=== PATIENT | male | born 1980 | race African-American/Black ===

== ENCOUNTER 2019-04-16 17:57 | Emergency (ER) | payer OTHER ==
[~2019-04-16] VITALS: Ht 167.6 cm; Wt 75.5 kg
[2019-04-16 18:25] LABS: BASO # 0.1 10^3/uL (0.0-0.2); BASO % 1.2 % (0.0-1.0); EOS # 0.4 10^3/uL (0.0-0.5); EOS % 7.3 % (0.0-3.0); HEMATOCRIT 47.9 % (42.0-52.0); HEMOGLOBIN 16.2 g/dl (13.5-17.5); LYMPH # 1.9 10^3/uL (1.5-5.0); LYMPH % 36.9 % (24.0-44.0); MEAN CORPUSCULAR HEMOGLOBIN 27.5 pg (27.0-33.0); MEAN CORPUSCULAR HGB CONC 33.8 g/dl (32.0-36.5); MEAN CORPUSCULAR VOLUME 81.3 fl (80.0-96.0); MONO # 0.4 10^3/uL (0.0-0.8); MONO % 8.1 % (0.0-5.0); NEUTROPHILS # 2.3 10^3/uL (1.5-8.5); NEUTROPHILS % 46.1 % (36.0-66.0); PLATELET COUNT, AUTOMATED 159 10^3/uL (150-450); RED BLOOD COUNT 5.89 10^6/uL (4.30-6.10); WHITE BLOOD COUNT 5.1 10^3/uL (4.0-10.0)
[2019-04-16] MEDS ORDERED: NITROGLYCERIN 0.4 MG SUBL TABLET SL PRN (18:45)
[2019-04-16 18:56] LABS: INR 1.01; PARTIAL THROMBOPLASTIN TIME 29.9 SECONDS (25.0-38.4)
--- NOTE | 2019-04-16 18:58 | REP ---
CHEST: Single view. There is no evidence of acute infiltrate. No pleural effusion is seen. The heart is normal in size. The mediastinal silhouette is unremarkable. The visualized osseous structures are intact. IMPRESSION: No acute pulmonary disease. Electronically Signed by Agusto Silverman MD 04/18/2019 04:35 P
[2019-04-16 19:05] LABS: ALBUMIN 4.2 GM/DL (3.2-5.2); ALT/SGPT 30 U/L (12-78); BILIRUBIN,DIRECT < 0.1 MG/DL (0.0-0.2); BILIRUBIN,TOTAL 0.3 MG/DL (0.2-1.0); BLOOD UREA NITROGEN 14 MG/DL (7-18); CALCIUM LEVEL 9.4 MG/DL (8.5-10.1); CARBON DIOXIDE LEVEL 29 MEQ/L (21-32); CHLORIDE LEVEL 106 MEQ/L (98-107); CK-MB VALUE MASS 1.2 NG/ML (<3.6); CPK CREATINE PHOSPHOKINASE 273 U/L (39-308); CREATININE FOR GFR 1.23 MG/DL (0.70-1.30); GLOMERULAR FILTRATION RATE > 60.0 (>60); GLUCOSE, FASTING 77 MG/DL (70-100); LIPASE 167 U/L (73-393); MB/CK RELATIVE INDEX 0.44 (< OR =4); POTASSIUM SERUM 4.6 MEQ/L (3.5-5.1); SODIUM LEVEL 141 MEQ/L (136-145); TOTAL PROTEIN 7.2 GM/DL (6.4-8.2); TROPONIN I < 0.02 NG/ML (< 0.10)
--- NOTE | 2019-04-16 19:26 | ECGEPIP ---
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
[2019-04-16 19:36] LABS: D-DIMER QUANT < 270 ng/ml (<500)
[2019-04-17 00:34] LABS: CK-MB VALUE MASS < 1.0 NG/ML (<3.6); CPK CREATINE PHOSPHOKINASE 194 U/L (39-308); MB/CK RELATIVE INDEX 0.52 (< OR =4); TROPONIN I < 0.02 NG/ML (< 0.10)
[2019-04-17 00:45] VITALS: BP 160/95
--- NOTE | 2019-04-18 21:21 | ECGEPIP ---
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
== END 2019-04-17 01:26 | disposition home or self-care (01) ==
LOC: EDBD 17:57 → M ED 17:57
DX: R07.9 Chest pain, unspecified (principal)
CPT/HCPCS: 36415; 71045; 80048; 80076; 82550; 82553; 83690; 84443; 84484; 85025; 85379; 85610; 85730; 93005; 93041; 94760; 99285; G0463

== ENCOUNTER 2019-04-21 03:34 | Emergency (ER) | payer OTHER ==
[~2019-04-21] VITALS: Ht 172.7 cm; Wt 73.6 kg
[2019-04-21] MEDS ORDERED: IBUP-1114 PO (03:41)
[2019-04-21] MEDS ORDERED: ZOFR4TAB16 PO (03:41)
[2019-04-21 03:53] LABS: BASO # 0.1 10^3/uL (0.0-0.2); BASO % 0.9 % (0.0-1.0); EOS # 0.3 10^3/uL (0.0-0.5); EOS % 4.9 % (0.0-3.0); HEMATOCRIT 47.6 % (42.0-52.0); HEMOGLOBIN 16.6 g/dl (13.5-17.5); LYMPH # 2.2 10^3/uL (1.5-5.0); LYMPH % 41.4 % (24.0-44.0); MEAN CORPUSCULAR HEMOGLOBIN 28.4 pg (27.0-33.0); MEAN CORPUSCULAR HGB CONC 34.9 g/dl (32.0-36.5); MEAN CORPUSCULAR VOLUME 81.5 fl (80.0-96.0); MONO # 0.4 10^3/uL (0.0-0.8); MONO % 7.7 % (0.0-5.0); NEUTROPHILS # 2.4 10^3/uL (1.5-8.5); NEUTROPHILS % 44.7 % (36.0-66.0); PLATELET COUNT, AUTOMATED 156 10^3/uL (150-450); RED BLOOD COUNT 5.84 10^6/uL (4.30-6.10); WHITE BLOOD COUNT 5.3 10^3/uL (4.0-10.0)
[2019-04-21 04:23] LABS: BLOOD UREA NITROGEN 12 MG/DL (7-18); CARBON DIOXIDE LEVEL 27 MEQ/L (21-32); CHLORIDE LEVEL 108 MEQ/L (98-107); CK-MB VALUE MASS < 1.0 NG/ML (<3.6); CPK CREATINE PHOSPHOKINASE 209 U/L (39-308); CREATININE FOR GFR 1.24 MG/DL (0.70-1.30); GLOMERULAR FILTRATION RATE > 60.0 (>60); GLUCOSE, FASTING 94 MG/DL (70-100); MB/CK RELATIVE INDEX 0.48 (< OR =4); POTASSIUM SERUM 4.2 MEQ/L (3.5-5.1); SODIUM LEVEL 142 MEQ/L (136-145); TROPONIN I < 0.02 NG/ML (< 0.10)
[2019-04-21] MEDS ORDERED: KETOROLAC 30 MG/ML VIAL (J1885) IV ONE (07:30)
[2019-04-21] MEDS ORDERED: ISOVUE-370 76% 100ML VIAL (Q9967) As Ordered ONE (07:32)
[2019-04-21 08:22] LABS: ERYTHROCYTE SEDIMENTATION RATE 1 mm/hr (0-15)
--- NOTE | 2019-04-21 08:27 | REPVR ---
PROCEDURE INFORMATION: Exam: CT Angiography Chest With Contrast Exam date and time: 04/21/2019 7:56 AM Clinical history: 38 years old, male; Chest wall pain; Additional info: Pleuritic cp TECHNIQUE: Imaging protocol: Computed tomographic angiography of the chest with intravenous contrast. 3D rendering: MIP reconstructed images were created and reviewed. Radiation optimization: All CT scans at this facility use at least one of these dose optimization techniques: automated exposure control; mA and/or kV adjustment per patient size (includes targeted exams where dose is matched to clinical indication); or iterative reconstruction. Contrast material: ISOVUE 370; Contrast volume: 75 ml; Contrast route: IV; COMPARISON: CR PORTABLE CHEST X-RAY 04/16/2019 6:22 PM FINDINGS: Pulmonary arteries: Normal. No pulmonary emboli. Aorta: Unremarkable. No aortic aneurysm. No aortic dissection. Lungs: Bilateral dependent atelectasis. Pleural space: Unremarkable. No pneumothorax. No pleural effusion. Heart: Unremarkable. No cardiomegaly. No pericardial effusion. Lymph nodes: Unremarkable. No enlarged lymph nodes. Bones/joints: Unremarkable. No acute fracture. Soft tissues: Unremarkable. IMPRESSION: No acute pulmonary embolic disease Electronically signed by: Praful Lau On 04/21/2019 08:27:37 AM
[2019-04-21 08:56] VITALS: BP 124/69
--- NOTE | 2019-04-21 13:32 | ECGEPIP ---
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
== END 2019-04-21 08:58 | disposition home or self-care (01) ==
LOC: M ED 03:34
DX: M94.0 Chondrocostal junction syndrome [Tietze] (principal)
CPT/HCPCS: 71275; 80048; 82550; 82553; 84484; 85025; 85652; 93005; 96374; 99284; J1885; Q9967

== ENCOUNTER → 2019-05-13 | Outpatient (CLI) | payer OTHER ==
[~2019-05-13] MED LIST: IBUP-1114 PO; ZOFR4TAB16 PO
--- NOTE | 2019-05-18 10:50 | SLEEPHOME ---
DATE OF PROCEDURE:05/13/2019 ORDERED BY: Dr. Wilson Diagnostic home sleep testing was performed due to concern for the obstructive sleep apnea syndrome in this patient with a history of snoring. For testing, a nocturnal T3 respiratory monitoring device was used. Continuous record was made of pulse, oxygen saturation, airflow, chest and abdominal strain and body position. 10 hours and 59 minutes of data were reviewed. There were 6 hours and 11 minutes marked as time in bed. During the interval marked time in bed, there were 103 respiratory events identified of 10 seconds in duration or greater for respiratory event index of 16.6. The events were frequently central, 86 of the 103 respiratory events were central and mixed apneas. Baseline pulse rate was 74 beats per minute, pulse rate ranged 51-108. Baseline saturation 96%. Saturations fell to 90%. The position monitor was displaced early in testing. Abnormal home sleep testing with repetitive respiratory events and oxygen desaturations to 90% with a respiratory event index of 16, 6 is consistent with the obstructive sleep apnea syndrome. Given the frequency of central events, complex apnea is a distinct possibility. RECOMMENDATIONS: The patient should be encouraged to undergo formal sleep evaluation.
== END ==
LOC: M SLEEP HO 09:46
PROVIDERS: ATTEND Internal Medicine Cardiovascular Disease
DX: R06.83 Snoring (principal)

== ENCOUNTER 2020-01-04 02:40 | Emergency (ER) | payer OTHER ==
[~2020-01-04] VITALS: Ht 172.7 cm; Wt 75.5 kg
[2020-01-04] MEDS ORDERED: SERT-141 PO (02:47)
[2020-01-04] MEDS ORDERED: TOPI200T7 PO (02:47)
[2020-01-04 03:27] LABS: BASO % 0.8 % (0.0-1.0); EOS # 0.2 10^3/uL (0.0-0.5); EOS % 2.9 % (0.0-3.0); HEMATOCRIT 47.9 % (42.0-52.0); HEMOGLOBIN 16.1 g/dl (13.5-17.5); LYMPH # 2.1 10^3/uL (1.5-5.0); LYMPH % 40.5 % (24.0-44.0); MEAN CORPUSCULAR HEMOGLOBIN 27.2 pg (27.0-33.0); MEAN CORPUSCULAR HGB CONC 33.6 g/dl (32.0-36.5); MONO # 0.4 10^3/uL (0.0-0.8); NEUTROPHILS # 2.5 10^3/uL (1.5-8.5); NEUTROPHILS % 47.6 % (36.0-66.0); PLATELET COUNT, AUTOMATED 180 10^3/uL (150-450); RED BLOOD COUNT 5.91 10^6/uL (4.30-6.10); WHITE BLOOD COUNT 5.1 10^3/uL (4.0-10.0)
--- NOTE | 2020-01-04 03:39 | REPVR ---
PROCEDURE INFORMATION: Exam: CT Head Without Contrast Exam date and time: 01/04/20 (3:09am) Age: 39 years old Clinical indication: Migraine headache TECHNIQUE: Imaging protocol: Computed tomography of the head without contrast. Radiation optimization: All CT scans at this facility use at least one of these dose optimization techniques: automated exposure control; mA and/or kV adjustment per patient size (includes targeted exams where dose is matched to clinical indication); or iterative reconstruction. COMPARISON: No relevant prior studies available FINDINGS: Brain: Unremarkable. No acute hemorrhage. Unremarkable white matter. No mass effect. Ventricles: Normal. No ventriculomegaly. Bones/joints: Unremarkable. No acute fracture. Sinuses: Visualized sinuses are unremarkable. No air-fluid levels. Mastoid air cells: Visualized mastoid air cells are well aerated. Soft tissues: Unremarkable. IMPRESSION: No acute intracranial pathology is appreciated. Electronically signed by: Stephanie Moses On 01/04/2020 03:39:06 AM
[2020-01-04] MEDS ORDERED: KETOROLAC 60MG 2ML VIAL IM ONE (03:45)
[2020-01-04 04:05] LABS: BLOOD UREA NITROGEN 9 MG/DL (7-18); CALCIUM LEVEL 8.7 MG/DL (8.5-10.1); CARBON DIOXIDE LEVEL 28 MEQ/L (21-32); CHLORIDE LEVEL 107 MEQ/L (98-107); CREATININE FOR GFR 1.15 MG/DL (0.70-1.30); GLOMERULAR FILTRATION RATE > 60.0 (>60); GLUCOSE, FASTING 94 MG/DL (70-100); POTASSIUM SERUM 4.3 MEQ/L (3.5-5.1); SODIUM LEVEL 140 MEQ/L (136-145)
[2020-01-04 04:24] VITALS: BP 136/89
== END 2020-01-04 04:27 | disposition home or self-care (01) ==
LOC: M ED 02:40
DX: G43.909 Migraine, unspecified, not intractable, without status migrainosus (principal); F41.9 Anxiety disorder, unspecified; Z79.899 Other long term (current) drug therapy
CPT/HCPCS: 70450; 80048; 85025; 96372; 99283; J1885

== ENCOUNTER 2020-01-12 03:06 | Emergency (ER) | payer OTHER ==
[~2020-01-12] VITALS: Ht 172.7 cm; Wt 76.4 kg
[2020-01-12 03:06] VITALS: BP 131/93
[~2020-01-12 03:06] MED LIST changes: +SERT-141 PO; +TOPI200T7 PO
[2020-01-12] MEDS ORDERED: ACET325C5 PO (03:38)
[2020-01-12] MEDS ORDERED: AMIT-255 PO (03:38)
[2020-01-12] MEDS ORDERED: CYCL-707 PO (03:38)
[2020-01-12] MEDS ORDERED: TOPI100T9 PO (03:38)
[2020-01-12] MEDS ORDERED: SUMA50TA2 PO (03:38)
[2020-01-12] MEDS ORDERED: KETOROLAC 60MG 2ML VIAL IM ONE (06:00)
== END 2020-01-12 07:15 | disposition home or self-care (01) ==
LOC: M ED 03:06
DX: G43.909 Migraine, unspecified, not intractable, without status migrainosus (principal)
CPT/HCPCS: 96372; 99282; J1885

== ENCOUNTER 2020-02-03 04:35 | Emergency (ER) | payer OTHER ==
[~2020-02-03] VITALS: Ht 172.7 cm; Wt 75.0 kg
[~2020-02-03 04:35] MED LIST changes: +ACET325C5 PO; +AMIT-255 PO; +CYCL-707 PO; +SUMA50TA2 PO; +TOPI100T9 PO
[2020-02-03 04:36] VITALS: BP 136/84
[2020-02-03] MEDS ORDERED: METOCLOPRAMIDE INJ 10MG/2ML VIAL (J2765 PER 1) IV ONE (05:00)
[2020-02-03] MEDS ORDERED: KETOROLAC 30 MG/ML 1ML VIAL IV ONE (05:00)
[2020-02-03] MEDS ORDERED: NS 1,000 ML IV ONE (05:00)
== END 2020-02-03 05:41 | disposition home or self-care (01) ==
LOC: M ED 04:35
DX: G43.909 Migraine, unspecified, not intractable, without status migrainosus (principal); Z79.899 Other long term (current) drug therapy
CPT/HCPCS: 96361; 96374; 96375; 99283; J1885; J2765

== ENCOUNTER 2020-05-07 10:52 | Inpatient (IN) | payer OTHER ==
[~2020-05-07] VITALS: Ht 172.7 cm; Wt 74.1 kg
[2020-05-07] MEDS ORDERED: CYCL5TAB PO (11:11)
[2020-05-07] MEDS ORDERED: MELO15TA28 PO (11:11)
[2020-05-07] MEDS ORDERED: RIZA10TA58 PO (11:11)
[2020-05-07] MEDS ORDERED: SUMA25TA3 PO (11:11)
[2020-05-07] MEDS ORDERED: CLAR10CA3 PO (11:11)
[2020-05-07] MEDS ORDERED: LOSA50TA88 PO (11:11)
[2020-05-07] MEDS ORDERED: TOPA100T12 PO (11:11)
[2020-05-07] MEDS ORDERED: CYMB60CA3 PO (11:11)
[2020-05-07] MEDS ORDERED: TIZA4CAP PO (11:11)
[2020-05-07] MEDS ORDERED: GABA-845 PO (11:11)
[2020-05-07 11:34] LABS: HEMATOCRIT 48.6 % (42.0-52.0); HEMOGLOBIN 16.4 g/dl (13.5-17.5); MEAN CORPUSCULAR HEMOGLOBIN 27.7 pg (27.0-33.0); MEAN CORPUSCULAR HGB CONC 33.7 g/dl (32.0-36.5); PLATELET COUNT, AUTOMATED 167 10^3/uL (150-450); RED BLOOD COUNT 5.93 10^6/uL (4.30-6.10); WHITE BLOOD COUNT 4.5 10^3/uL (4.0-10.0)
[2020-05-07 12:05] LABS: AMPHETAMINES LEVEL URINE NEGATIVE (NEGATIVE); BARBITURATES URINE NEGATIVE (NEGATIVE); BENZODIAZEPINES URINE NEGATIVE (NEGATIVE); CANNABINOIDS URINE NEGATIVE (NEGATIVE); COCAINE METABOLITE URINE NEGATIVE (NEGATIVE); METHADONE URINE NEGATIVE (NEGATIVE); OPIATES URINE NEGATIVE (NEGATIVE); PHENCYCLIDINE URINE NEGATIVE (NEGATIVE)
[2020-05-07 12:17] LABS: ACETAMINOPHEN LEVEL < 2.0 UG/ML (10.0-30.0); ALBUMIN 4.4 GM/DL (3.2-5.2); ALT/SGPT 25 U/L (12-78); BILIRUBIN,DIRECT 0.1 MG/DL (0.0-0.2); BILIRUBIN,TOTAL 0.6 MG/DL (0.2-1.0); BLOOD UREA NITROGEN 10 MG/DL (7-18); CALCIUM LEVEL 9.5 MG/DL (8.5-10.1); CARBON DIOXIDE LEVEL 30 MEQ/L (21-32); CHLORIDE LEVEL 105 MEQ/L (98-107); CREATININE FOR GFR 1.15 MG/DL (0.70-1.30); ETHYL ALCOHOL (ETHANOL) < 0.003 % (0.000-0.010); GLOMERULAR FILTRATION RATE > 60.0 (>60); GLUCOSE, FASTING 114 MG/DL (70-100); POTASSIUM SERUM 3.8 MEQ/L (3.5-5.1); SALICYLATE LEVEL < 1.7 MG/DL (5.0-30.0); SODIUM LEVEL 140 MEQ/L (136-145); TOTAL PROTEIN 7.6 GM/DL (6.4-8.2)
[2020-05-07] MEDS ORDERED: NEUR100C PO (12:30)
[2020-05-07] MEDS ORDERED: VOLT1GEL15 TOP (12:38)
[2020-05-07] MEDS ORDERED: LIDO5DIS41 TD (12:38)
[2020-05-07] MEDS ORDERED: OLOP0.1D OD (12:38)
[2020-05-07] MEDS ORDERED: PANT20TA6 PO (12:38)
[2020-05-07] MEDS ORDERED: PROMETHAZINE INJ 25 MG/ML VIAL (J2550) IM ONE (15:30)
[2020-05-07] MEDS ORDERED: MAALOX 30 ML SUSP *UDC PO PRN (18:45)
[2020-05-07] MEDS ORDERED: traZODone 50 MG TAB PO PRN (18:45)
[2020-05-07] MEDS ORDERED: ACETAMINOPHEN TAB 650MG DOSE (2X325MG) PO PRN (18:45)
[2020-05-07] MEDS ORDERED: MOM 30ML SUSPENSION UDC PO PRN (18:45)
[2020-05-07 22:53] VITALS: BP 130/82
[2020-05-08 06:22] VITALS: BP 131/78
[2020-05-08] MEDS ORDERED: INFLUENZA QUADRIVALENT PF VACCINE 0.5ML SYRINGE IM ONE (09:00)
[2020-05-08] MEDS ORDERED: DICLOFENAC EPOLAMINE 1.3 % PATCH TOP SCH (12:30)
[2020-05-08] MEDS ORDERED: ONDANSETRON 4 MG TAB PO PRN (12:30)
[2020-05-08] MEDS ORDERED: RIZATRIPTAN MLT 10 MG TAB PO PRN (12:30)
--- NOTE | 2020-05-08 13:00 | HPEPDOC ---
[facility] Medical History & Physical Date of Admission May 07, 2020 Date of Service: May 08, 2020 History and Physical CHIEF COMPLAINT: Migraines HISTORY OF PRESENT ILLNESS: Mr. Ivey is a 39-year-old male with migraines, depression, and anxiety who is in the inpatient mental health unit for suicide ideation. Otherwise, he tells me he has a chronic low level headache. Rates the pain 2 out of 10. Reports that it's there all the time, currently unchanged in characteristics. Denies any waxing or waning. The pain is unilateral on the left side. He feels it behind his left eye. He alternates between migraine medications. He is not taking sumatriptan or topiramate. He tells me that he is currently taking rizatriptan. Also, about 2 weeks ago he twisted his ankle. He seen a [facility] senior specialist. He is wearing orthotics/brace on the left ankle. He feels that his left ankle is improving. He tells me that he periodically gets chest pain. May be related to GERD as he says pantoprazole helps with the pain. Last time it happened was a week ago. PAST MEDICAL HISTORY: 1. Migraines 2. High blood pressure. 3. Twisted left ankle, occurred 2 weeks ago. PAST SURGICAL HISTORY: 1. Denies any surgical history SOCIAL HISTORY: Tobacco use: Denies ever smoking ETOH: Denies Illicit drug use: Denies FAMILY HISTORY: Father: History of HI and TIA Mother: History of high blood pressure ALLERGIES: Please see below. REVIEW OF SYSTEMS: CONSTITUTIONAL: Denies any fever or chills. Denies lightheadedness or dizziness. ENT: Denies rhinorrhea. Denies sore throat. Denies dysphagia. RESPIRATORY: Denies shortness of breath. Denies cough. CARDIOVASCULAR: Denies chest pain. Denies palpitations. GASTROINTESTINAL: Denies abdominal pain. Denies diarrhea. Denies constipation GENITOURINARY: Denies dysuria. CUTANEOUS: Denies rashes. MUSCULOSKELETAL: Denies muscle weakness. NEUROLOGICAL: Reports headache. Denies neuropathy. Denies paresthesias. ENDOCRINE: Denies polydipsia, denies polyuria, denies polyphagia HOME MEDICATIONS: Please see below. PHYSICAL EXAMINATION: VITAL SIGNS: Temperature 97.1, pulse 64, respiratory rate 12, blood pressure 131/78, pulse oximetry 99 % on room air. GENERAL: Comfortable, in no apparent distress. HEENT: Head normocephalic/atraumatic, EOMI, sclera clear. NECK: Supple, no JVD. RESPIRATORY: Lungs clear to auscultation bilaterally, no rales, wheeze or rhonchi. CARDIOVASCULAR: Regular rate and rhythm. ABDOMEN: Soft, nontender, no guarding or rebound tenderness. Normal bowel sounds. MUSCLE SKELETAL: Left foot in brace. No pitting edema bilaterally NEUROLOGICAL: CN 312 grossly intact, no focal deficits noted. PSYCHOLOGICAL: Anxious LABORATORY DATA: See below. MICROBIOLOGY: Please see below. ASSESSMENT and PLAN: 1. Suicide ideation Being managed in the inpatient mental health unit 2. Migraines We will restart Rizatriptan as needed. Patient reports not taking topiramate or Sumatriptan 3. Chronic pain Holding cyclobenzaprine, gabapentin, and lidocaine patch as patient says he does not take these Continuing diclofenac topical, meloxicam, tizanidine, and Tylenol . 4. Atypical chest pain Reports that pantoprazole helps with the pain No active chest pain at this time. If he does develop chest pain would recommend obtaining EKG and troponins every 6 hours 3 and contacting physician 5. Nausea Can continue Zofran as needed 6. Hypertension Can continue losartan 7. Allergic conjunctivitis Continue Olopatadine drops 8. Left ankle sprain Patient reports seeing podiatry. Continue left foot brace for total 4 weeks or until [facility] senior specialist sees him again. Thank you for involving us in patient care. We will sign off now. There is any further questions or concerns please don't hesitate to reconsult us Vital Signs Vital Signs Date Time Temp Pulse Resp B/P (MAP) Pulse Ox O2 Delivery O2 Flow Rate FiO2 05/08/20 06:22 97.1 64 12 131/78 (95) Room Air 05/07/20 22:53 99 Home Medications Scheduled Diclofenac Sodium (Voltaren) 100 Gm Gel..gram., 1 GRAM TOP QID for pain apply to affected area(s) Duloxetine Hcl (Cymbalta) 60 Mg Capsule.dr, 60 MG PO DAILY Lidocaine (Lidoderm) 5% Adh..patch, 4 PATCH TD DAILY pt states: applies to both knees and ankles Losartan Potassium (Losartan Potassium) 50 Mg Tablet, 50 MG PO DAILY Meloxicam (Meloxicam) 15 Mg Tablet, 15 MG PO DAILY Olopatadine HCl (Olopatadine HCl) 0.1% 5ML Drops, 1 DROP OD BID Pantoprazole Sodium (Pantoprazole Sodium) 20 Mg Tablet.dr, 20 MG PO QHS Tizanidine HCl (Tizanidine HCl) 4 Mg Capsule, 4 MG PO QHS Topiramate (Topiramate) 100 Mg Tablet, 100 MG PO QHS Scheduled PRN Acetaminophen (Tylenol) 325 Mg Capsule, 325 MG PO Q6H PRN for PAIN Cyclobenzaprine HCl (Cyclobenzaprine HCl) 5 Mg Tablet, 5 MG PO QPM PRN for SPASMS Gabapentin (Neurontin) 100 Mg Capsule, 400 MG PO QHS PRN for PAIN Ondansetron HCl (Zofran) 4 Mg Tablet, 4 MG PO Q6H PRN for nausea/vomiting Rizatriptan Benzoate (Rizatriptan) 10 Mg Tab.rapdis, 10 MG PO PRN PRN for MIGRAINE pt states alternating btwn rizatriptan, sumatriptan and topiramate for migraines Sumatriptan Succinate (Sumatriptan Succinate) 50 Mg Tablet, 50 MG PO PRN PRN for HEADACHE Allergies Coded Allergies: No Known Allergies (Verified Allergy, Unknown, 04/16/19) A-FIB/CHADSVASC A-FIB History Current/History of A-Fib/PAF?: No NUBIA NARAYANAN DO May 08, 2020 12:50
[2020-05-08] MEDS ORDERED: LIDOCAINE 5% (LIDODERM) PATCH TD PRN (13:30)
[2020-05-08] MEDS: OLOPATADINE 0.1% OPHTH SOL 5ML(PATANOL) OD SCH ×2 (13:37→21:24)
[2020-05-08] MEDS: MELOXICAM (MOBIC) 7.5 MG TAB PO SCH (13:37)
[2020-05-08] MEDS: LOSARTAN 50MG TABLET PO SCH (13:37)
[2020-05-08] MEDS ORDERED: hydrOXYzine 50 MG TAB PO PRN (15:00)
--- NOTE | 2020-05-08 15:09 | MHHPEPDOC ---
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 Reports feeling depressed, anxious and having suicidal ideation to kill himself by motor vehicle accident. Patient has numerous stressors:1) Being med-boarded out of the [employer], and reports that initially he didn't want this wanted to make a career of it and retire after 20 years. 2) has chronic medical conditions - seeing a neurologist for migraines, s eeing an orthopedist for wrist and ankle pain, seeing a classroom teacher. 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 Psychiatric Review of Systems Depression (2 or more weeks): depressed mood, anhedonia, insomnia/hypersomnia, feelings of worthlesness, decreased energy, difficulty concentrating, psychomotor changes, suicidal thoughts Katelin (4 or more days of): denies Psychosis: denies PTSD: denies Anxiety: stressor related anxiety, panic attacks Anxiety/ 6 months or more of: easily fatigued, difficulty concentrating, muscle tension, sleep disturbance Past Psychiatric History Previous Psychiatric Diagnosis: Depression, believes he also has Anxiety Previous Psychiatric Admissions: This is first admission Suicide Attempts: Ideation in the past with vague planning, and not gestures or attempts Psychiatric Follow-up: [facility] Psychiatric medications: Cymbalta he thinks Past Medical History Medical Problems Migraines Chest pain costochondritis Hypertension Twisted left ankle, occurred 2 weeks ago. 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 Marital: this is his 2nd marriage, almost 2 years. 2 children 2 y/o, 6 months Mental Status Examination General Appearance: well groomed Build: average Demeanor: average Eye Contact: average Activity: average Behavior: cooperative Speech: clear Mood: depressed Mood "I don't feel depressed and I want to go home" Affect: constricted Thought Process: logical/linear Thought Content (Delusions): none reported Thought Content (Other): none reported Thought Content (Aggressive): none reported Perception (Hallucinations): none reported Perception (Other): none reported Cognition (Impairment of): none reported Cognition(Intelligence Est.): above average Oriented: Awake, Alert, Oriented times three Insight: good, fair Judgment: Good, Fair Psychosis: Denies Diagnoses Major Depressive Disorder, Single Episode, Moderate A-FIB/CHADSVASC A-FIB History Current/History of A-Fib/PAF?: No Assessment Patient reporting no depression, mild depression. Initially I felt strongly that patient could be discharged today. [facility] is not open today or Monday and he could not be discharged today I have ordered Cymbalta 20 mg with his pain, this may help with both depression and his pain issues. Patient is denying suicidal ideation at this time, I reinforced that individual therapy to target positive coping mechanisms to reduce his reactionary response to stress of self harm thinking. Initial Treatment Plan 1. Patient was admitted on a [9.39] status. 2. Complete history was obtained. 3. With patients permission, family will be contacted and database will be expanded. 4. Patients medication regimen will be reviewed and changed accordingly. 5. Patient will be provided with protected environment. 6. Patient will be treated with individual, group, and milieu therapies. 7. Patient will receive supportive psych-education. 8. Discharge planning will commence immediately. 9. Outpatient follow-up treatment will be strongly recommended. 10. The initial treatment plan will focus initially on: * Depression. * Risk for suicide. ESTIMATED LENGTH OF STAY: 3-5 DAYS. TIME SPENT COUNSELING AND COORDINATING INITIAL CARE: 50 minutes. Vital Signs Vital Signs Date Time Temp Pulse Resp B/P (MAP) Pulse Ox O2 Delivery O2 Flow Rate FiO2 05/08/20 13:37 131/78 05/08/20 06:22 97.1 64 12 Room Air 05/07/20 22:53 99 Medications Scheduled Diclofenac Sodium (Voltaren) 100 Gm Gel..gram., 1 GRAM TOP QID for pain, (Reported) apply to affected area(s) Duloxetine Hcl (Cymbalta) 60 Mg Capsule.dr, 60 MG PO DAILY, (Reported) Lidocaine (Lidoderm) 5% Adh..patch, 4 PATCH TD DAILY, (Reported) pt states: applies to both knees and ankles Losartan Potassium (Losartan Potassium) 50 Mg Tablet, 50 MG PO DAILY, (Reported) Meloxicam (Meloxicam) 15 Mg Tablet, 15 MG PO DAILY, (Reported) Olopatadine HCl (Olopatadine HCl) 0.1% 5ML Drops, 1 DROP OD BID, (Reported) Pantoprazole Sodium (Pantoprazole Sodium) 20 Mg Tablet.dr, 20 MG PO QHS, (Reported) Tizanidine HCl (Tizanidine HCl) 4 Mg Capsule, 4 MG PO QHS, (Reported) Topiramate (Topiramate) 100 Mg Tablet, 100 MG PO QHS, (Reported) Scheduled PRN Acetaminophen (Tylenol) 325 Mg Capsule, 325 MG PO Q6H PRN for PAIN, (Reported) Cyclobenzaprine HCl (Cyclobenzaprine HCl) 5 Mg Tablet, 5 MG PO QPM PRN for SPASMS, (Reported) Gabapentin (Neurontin) 100 Mg Capsule, 400 MG PO QHS PRN for PAIN, (Reported) Ondansetron HCl (Zofran) 4 Mg Tablet, 4 MG PO Q6H PRN for nausea/vomiting, (Reported) Rizatriptan Benzoate (Rizatriptan) 10 Mg Tab.rapdis, 10 MG PO PRN PRN for MIGRAINE, (Reported) pt states alternating btwn rizatriptan, sumatriptan and topiramate for migraines Sumatriptan Succinate (Sumatriptan Succinate) 50 Mg Tablet, 50 MG PO PRN PRN for HEADACHE, (Reported) Allergies Coded Allergies: No Known Allergies (Verified Allergy, Unknown, 04/16/19) ZACK TORRES NP May 08, 2020 14:42
[2020-05-08] MEDS: DULoxetine 20 MG CAP (CYMBALTA) PO SCH (16:56)
[2020-05-08 17:59] VITALS: BP 120/78
[2020-05-08] MEDS: tiZANidine 4 MG TAB PO SCH (21:24)
[2020-05-08] MEDS: PANTOPRAZOLE 20 MG TAB PO SCH (21:24)
[2020-05-09 06:43] VITALS: BP 135/79
[2020-05-09] MEDS: OLOPATADINE 0.1% OPHTH SOL 5ML(PATANOL) OD SCH ×2 (08:46→20:22)
[2020-05-09] MEDS: DULoxetine 20 MG CAP (CYMBALTA) PO SCH (08:47)
[2020-05-09] MEDS: LOSARTAN 50MG TABLET PO SCH (08:47)
[2020-05-09] MEDS: MELOXICAM (MOBIC) 7.5 MG TAB PO SCH (08:47)
[2020-05-09 17:59] VITALS: BP 122/78
[2020-05-09] MEDS: PANTOPRAZOLE 20 MG TAB PO SCH (20:22)
[2020-05-09] MEDS: tiZANidine 4 MG TAB PO SCH (20:22)
[2020-05-10 06:49] VITALS: BP 134/86
[2020-05-10] MEDS: DULoxetine 20 MG CAP (CYMBALTA) PO SCH (08:39)
[2020-05-10] MEDS: OLOPATADINE 0.1% OPHTH SOL 5ML(PATANOL) OD SCH ×2 (08:39→20:46)
[2020-05-10] MEDS: MELOXICAM (MOBIC) 7.5 MG TAB PO SCH (08:39)
[2020-05-10] MEDS: LOSARTAN 50MG TABLET PO SCH (08:40)
--- NOTE | 2020-05-10 16:19 | MHIPN ---
DATE: 05/09/2020 The patient today states that he is doing good. He says he slept well. He has no complaints. Denies suicidal ideation. MENTAL STATUS EXAMINATION: He is alert and oriented times three. Pleasant and cooperative verbally spontaneous. Eye contact good. Mood is good. Affect full range and appropriate. He is not psychotic, suicidal, homicidal. Concentration and memory are good. Insight and judgment good. DIAGNOSIS: Major depressive disorder. TREATMENT PLAN: We will continue to monitor the patient for continued stabilization and resolution of any suicidal ideation. ALEIDA
[2020-05-10 17:57] VITALS: BP 153/86
[2020-05-10] MEDS: tiZANidine 4 MG TAB PO SCH (20:46)
[2020-05-10] MEDS: PANTOPRAZOLE 20 MG TAB PO SCH (20:46)
[2020-05-11 06:33] VITALS: BP 134/92
[2020-05-11] MEDS: DULoxetine 20 MG CAP (CYMBALTA) PO SCH (08:53)
[2020-05-11] MEDS: LOSARTAN 50MG TABLET PO SCH (08:53)
[2020-05-11] MEDS: OLOPATADINE 0.1% OPHTH SOL 5ML(PATANOL) OD SCH ×2 (08:53→20:56)
[2020-05-11] MEDS: MELOXICAM (MOBIC) 7.5 MG TAB PO SCH (08:53)
--- NOTE | 2020-05-11 09:43 | MHIPNPDOC ---
[facility] Progress Note Progress Note DATE OF SERVICE: 05/11/20 Subjective HPI: Tristin presents today for a check up. Patient reports that he is doing well and much improved. He hasn't any groups as he reports that he finds the milieu a bit unnerving. However, otherwise nursing staff report. He's been doing well engage he reports that his depression has resolved in his suicidal thoughts have resolved as well. Objective Appearance: Well groomed. Well nourished. Appears to be stated age. Behavior: Pleasant. Cooperative with good eye contact. Engaged. Affect: Appropriate to context. Full range. Mood: Euthymic. Generally good. Appropriately reactive. Speech: Spontaneous and Fluid. Normal volume. Normal rate. Motor: No gross motor abnormalities. Cognition: Alert, Attentive, and Oriented to person, place, time. Memory: No gross abnormalities of short or fdc memory noted during interview. No formal testing. Thought Form: Linear and goal directed. Thought Content: No evidence of aggressive or homicidal ideation. No thoughts of self harm. No evidence of delusions. No evidence of suicidal ideation. Perception: No perceptual abnormalities noted. Judgement: Intact as evidenced by decision making in the recent past. Insight: Good insight into symptoms and treatment options. Assessment F33.8 Other recurrent depressive disorders Plan Continue medications as current discharge is tomorrow. Vital Signs Vital Signs Date Time Temp Pulse Resp B/P (MAP) Pulse Ox O2 Delivery O2 Flow Rate FiO2 05/11/20 08:53 139/80 05/11/20 06:33 98.1 89 14 100 Room Air Current Medications Current Medications Medications (Trade) Dose Ordered Sig/Nubia Route PRN Reason Start Time Stop Time Status Last Admin Dose Admin Acetaminophen (Tylenol Tab) 650 mg Q6HP PRN PO HEADACHE or DISCOMFORT 05/07/20 18:45 Al Hydrox/Mg Hydrox/Simethicone (Mylanta) 30 ml Q4HP PRN PO HEARTBURN/INDIGESTION 05/07/20 18:45 Diclofenac Epolamine (Flector 1.3%) 1 patch Q12H TOP 05/08/20 12:30 05/08/20 13:27 DC Duloxetine HCl (Cymbalta) 20 mg QAM PO 05/08/20 09:00 05/11/20 08:53 Home Med (Med Rec Complete!) ASDIRECTED XX 05/07/20 12:45 05/07/20 12:45 DC Hydroxyzine HCl (Atarax) 50 mg Q6HP PRN PO anxiety 05/08/20 15:00 Lidocaine (Lidoderm Patch) 2 patch DAILYPRN PRN TD PAIN 05/08/20 13:30 05/09/20 08:48 Losartan Potassium (Cozaar) 50 mg DAILY PO 05/08/20 09:00 05/11/20 08:53 Magnesium Hydroxide (Milk Of Magnesia) 30 ml DAILYPRN PRN PO CONSTIPATION 05/07/20 18:45 Meloxicam (Mobic) 15 mg DAILY PO 05/08/20 09:00 05/11/20 08:53 Non-Formulary Medication ( See Comment Field Below ) REMOVE LIDODERM PATCHES... DAILY@21 XX 05/08/20 21:00 05/09/20 20:24 Olopatadine HCl (Patanol) 1 drop BID OD 05/08/20 09:00 05/11/20 08:53 Ondansetron HCl (Zofran) 4 mg Q6H PRN PO nausea/vomiting 05/08/20 12:30 Pantoprazole Sodium (Protonix) 20 mg QHS PO 05/08/20 21:00 05/10/20 20:46 Rizatriptan Benzoate (Maxalt-Newspaper Car[employer] Supervisor) 10 mg Q2HP PRN PO MIGRAINE 05/08/20 12:30 Tizanidine HCl (Zanaflex) 4 mg QHS PO 05/08/20 21:00 05/10/20 20:46 Trazodone HCl (Desyrel) 50 mg QHSP PRN PO INSOMNIA 05/07/20 18:45 05/08/20 21:32 Allergies Coded Allergies: No Known Allergies (Verified Allergy, Unknown, 04/16/19) ANTOINE ARELLANO DO May 11, 2020 09:43
[2020-05-11 16:02] VITALS: BP 127/79
[2020-05-11] MEDS: PANTOPRAZOLE 20 MG TAB PO SCH (20:57)
[2020-05-11] MEDS: tiZANidine 4 MG TAB PO SCH (20:58)
[2020-05-12 06:26] VITALS: BP 144/88
[2020-05-12 08:52] VITALS: BP 129/83
[2020-05-12] MEDS: MELOXICAM (MOBIC) 7.5 MG TAB PO SCH (08:52)
[2020-05-12] MEDS: OLOPATADINE 0.1% OPHTH SOL 5ML(PATANOL) OD SCH (08:52)
[2020-05-12] MEDS: LOSARTAN 50MG TABLET PO SCH (08:52)
[2020-05-12] MEDS: DULoxetine 20 MG CAP (CYMBALTA) PO SCH (08:53)
--- NOTE | 2020-05-12 09:51 | MHIPN ---
DATE: 05/10/2020 The patient today states his mood is good. He is a little bit upset because there are a few things that he would like to be able to do such as pay some bill on the phone. The patient says he slept good. MENTAL STATUS EXAMINATION: The patient is alert and oriented times three. Eye contact is fairly good. Psychomotor activity is normal. There is no formal thought disorder noted. Mood is good. Affect is constricted but appropriate to mood. He is not psychotic, suicidal, or homicidal. Concentration and memory is fairly good. Insight and judgment is fair. DIAGNOSIS: Major depressive disorder. TREATMENT PLAN: We will continue the patients current treatment and monitor him for continued elevation of his mood and resolution of his suicidal ideation. ALEIDA
--- NOTE | 2020-05-12 10:42 | MHDSPDOC ---
[facility] Discharge Summary Discharge Summary DATE OF ADMISSION: May 07, 2020 at 18:32 DATE OF DISCHARGE: May 12, 2020 at 12:30 DISCHARGE DIAGNOSES: F32.89 Other specified depressive episodes CONSULTANTS INVOLVED:[ None (basic hospitalist screening)] REASON FOR ADMISSION & TREATMENT AND PROGRESS ON THE UNIT : [facility]. Reportedly there have been some difficulties with compliance with his medications. Patient made good progress with resumed meds and his depression and suicidal ideation quickly resolved at the first day of hospitalization. He did attend groups sometimes but was generally shy around others. He then improved. MEDICATIONS: Patient has resumed Cymbalta 20 mg daily previously been on 60 mg. DISCHARGE ASSESSMENT[improved] Legal status considerations: The patient at the time of discharge did not meet criteria for involuntary admission/extension due to having a [normal] mental status exam, [fair] insight into the situation, They are engaged in the discharge process, as well as being friendly and amenable in behavioral control and havent been engaging in any observed concerning behavior or ideation recently. They decline voluntary extension/admission at this time and must be discharged in [place], as Im unable to make a case for holding the patient against their will. They may have historical risk factors of admissions and other interactions with psychiatry however, those are not modifiable from a clinical perspective. The patient will need to be discharged in [place]. MENTAL STATUS EXAMINATION ON DISCHARGE: [General: Well dressed with good hygiene Speech: Spontaneous and fluid Thought processes: Linear and logical Thought content: Future orientated Abstract reasoning, and computation: Intact Description of associations: Intact Description of abnormal or psychotic thoughts:Denies any suicidal or homicidal ideation. Denies any auditory or visual hallucinations. Does not appear to be responding to internal stimuli. Does not appear to be endorsing any bizarre or paranoid ideation. Judgment: fair Insight: fair Orientation: Alert and orientated 3 Recent and remote memory: Intact Attention span and concentration: Intact Fund of knowledge: Adequate Mood: "okay" Affect: Euthymic with a full range] PLAN/FOLLOWUP ARRANGEMENTS: Follow up appointments made (PCP and MH in 5 days of D/C date) and safety plan completed. Safety Planning aspects completed prior to discharge [DOD: Weapons Profile 30 days] [Medication supplies limited to 7 days with 4 refills to prevent accumulation to OD] [RN reviewed crisis hotline information and other aspects to empower patient to access care in interim before next appointment.] The amount of time spent in the coordination of care for this patient was approximately 30 minutes. Vital Signs/I&Os Vital Signs Date Time Temp Pulse Resp B/P (MAP) Pulse Ox O2 Delivery O2 Flow Rate FiO2 05/12/20 08:52 129/83 05/12/20 06:26 98.1 100 16 05/11/20 06:33 100 Room Air Medications Scheduled Diclofenac Sodium (Voltaren) 100 Gm Gel..gram., 1 GRAM TOP QID for pain for 30 Days, #1 apply to affected area(s) Duloxetine HCl (Cymbalta) 20 Mg Capsule.dr, 20 MG PO QAM for mood for 7 Days, #7 Losartan Potassium (Losartan Potassium) 50 Mg Tablet, 50 MG PO DAILY for htn for 7 Days, #7 Meloxicam (Meloxicam) 15 Mg Tablet, 15 MG PO DAILY for pain for 7 Days, #7 Olopatadine HCl (Olopatadine HCl) 0.1% 5ML Drops, 1 DROP OD BID for eyes for 30 Days, #1 Pantoprazole Sodium (Pantoprazole Sodium) 20 Mg Tablet.dr, 20 MG PO QHS, (Reported) Tizanidine HCl (Tizanidine HCl) 4 Mg Capsule, 4 MG PO QHS for muscle pain for 7 Days, #7 Topiramate (Topiramate) 100 Mg Tablet, 100 MG PO QHS for mojica for 7 Days, #7 Scheduled PRN Acetaminophen (Tylenol) 325 Mg Capsule, 325 MG PO Q6H PRN for PAIN, (Reported) Cyclobenzaprine HCl (Cyclobenzaprine HCl) 5 Mg Tablet, 5 MG PO QPM PRN for SPASMS for 7 Days, #7 Gabapentin (Neurontin) 100 Mg Capsule, 400 MG PO QHS PRN for PAIN for 7 Days, #28 Lidocaine (Lidocaine) 5% Adh..patch, 2 PATCH TD DAILYPRN PRN for PAIN for 30 Days, #60 Ondansetron HCl (Zofran) 4 Mg Tablet, 4 MG PO Q6H PRN for nausea/vomiting for 7 Days, #7 Rizatriptan Benzoate (Rizatriptan) 10 Mg Tab.rapdis, 10 MG PO PRN PRN for MIGRAINE for 7 Days, #7 pt states alternating btwn rizatriptan, sumatriptan and topiramate for migraines Sumatriptan Succinate (Sumatriptan Succinate) 50 Mg Tablet, 50 MG PO PRN PRN for HEADACHE for 7 Days, #7 Allergies Coded Allergies: No Known Allergies (Verified Allergy, Unknown, 04/16/19) ANTOINE ARELLANO DO May 12, 2020 10:42
[2020-05-12] MEDS ORDERED: CYCL5TAB PO (10:57)
[2020-05-12] MEDS ORDERED: MELO15TA28 PO (10:57)
[2020-05-12] MEDS ORDERED: NEUR100C PO (10:57)
[2020-05-12] MEDS ORDERED: VOLT1GEL15 TOP (10:57)
[2020-05-12] MEDS ORDERED: LIDO5TD TD (10:57)
[2020-05-12] MEDS ORDERED: CYMB1CAP4 PO (10:57)
[2020-05-12] MEDS ORDERED: SUMA50TA2 PO (10:57)
[2020-05-12] MEDS ORDERED: TOPI100T9 PO (10:57)
[2020-05-12] MEDS ORDERED: OLOP0.1D OD (10:57)
[2020-05-12] MEDS ORDERED: LOSA50TA88 PO (10:57)
[2020-05-12] MEDS ORDERED: RIZA10TA58 PO (10:57)
[2020-05-12] MEDS ORDERED: TIZA4CAP PO (10:57)
[2020-05-12] MEDS ORDERED: ZOFR4TAB16 PO (10:57)
== END 2020-05-12 12:30 | disposition home or self-care (01) | DRG 885 ==
LOC: M ED 10:52 → M ED INP 18:32 → M PSY 21:49
PROVIDERS: ADMIT Psychiatry & Neurology Addiction Medicine; ATTEND Psychiatry & Neurology Addiction Medicine
DX: F33.8 Other recurrent depressive disorders (principal); R45.851 Suicidal ideations; G43.909 Migraine, unspecified, not intractable, without status migrainosus; I10 Essential (primary) hypertension; H10.11 Acute atopic conjunctivitis, right eye; Z79.899 Other long term (current) drug therapy

== ENCOUNTER 2020-05-25 19:53 | Emergency (ER) | payer OTHER ==
[~2020-05-25] VITALS: Ht 172.7 cm; Wt 75.8 kg
[~2020-05-25 19:53] MED LIST changes: +CLAR10CA3 PO; +CYCL5TAB PO; +CYMB1CAP4 PO; +CYMB60CA3 PO; +GABA-845 PO; +LIDO5DIS41 TD; +LIDO5TD TD; +LOSA50TA88 PO; +MELO15TA28 PO; +NEUR100C PO; +OLOP0.1D OD; +PANT20TA6 PO; +RIZA10TA58 PO; +SUMA25TA3 PO; +TIZA4CAP PO; +TOPA100T12 PO; +VOLT1GEL15 TOP
[2020-05-25] MEDS ORDERED: diphenhydrAMINE 50MG/ML VIAL (J1200) IV STA (20:56)
[2020-05-25] MEDS ORDERED: METOCLOPRAMIDE INJ 10MG/2ML VIAL (J2765 PER 1) IV ONE (21:00)
[2020-05-25] MEDS ORDERED: NS 1,000 ML IV ONE (21:00)
[2020-05-25] MEDS ORDERED: KETOROLAC 30 MG/ML 1ML VIAL IV ONE (21:00)
[2020-05-25 23:11] VITALS: BP 119/76
[2020-06-18] MEDS ORDERED: LORA-674 PO (09:49)
[2020-06-18] MEDS ORDERED: GABA-843 PO (09:49)
[2020-06-18] MEDS ORDERED: TRIPCAP PO (10:27)
== END 2020-05-25 23:00 | disposition home or self-care (01) ==
LOC: M ED 19:53
DX: G43.909 Migraine, unspecified, not intractable, without status migrainosus (principal); F32.9 Major depressive disorder, single episode, unspecified; G89.29 Other chronic pain
CPT/HCPCS: 96361; 96374; 96375; 99284; J1200; J1885; J2765

== ENCOUNTER 2021-01-09 15:56 | Emergency (ER) | payer OTHER ==
[~2021-01-09] VITALS: Ht 172.7 cm; Wt 74.5 kg
[~2021-01-09 15:56] MED LIST changes: +BUPR150T12; +GABA-282 PO; +GABA-283 PO; -GABA-845 PO; +LORA-674 PO; +TRIPCAP PO
[2021-01-09] MEDS ORDERED: ZANA4TAB (16:38)
[2021-01-09] MEDS ORDERED: FLUO1OPD (16:38)
[2021-01-09] MEDS ORDERED: KETOROLAC 60MG 2ML VIAL IM ONE (17:50)
[2021-01-09] MEDS ORDERED: LIDOCAINE 5% (LIDODERM) PATCH TD ONE (17:50)
[2021-01-09] MEDS ORDERED: diazePAM 10 MG TAB PO ONE ×2 (17:50→20:05)
--- NOTE | 2021-01-09 19:22 | REP ---
INDICATION: low back pain when bent over. COMPARISON: None. TECHNIQUE: Five views of the lumbar spine are obtained. FINDINGS: There is straightening of the normal lumbar lordosis. Lumbar vertebral body heights are preserved. Disc spaces are maintained. Alignment is otherwise normal. There is no evidence of spondylolysis or spondylolisthesis. Facets are normally aligned. No bony destructive lesion is seen. Psoas margins are symmetric. Sacrum and SI joints are intact. IMPRESSION: Straightening, otherwise negative lumbar spine radiographs. <Electronically signed by Neftaly Alberts > 01/09/21 1005
[2021-01-09] MEDS ORDERED: NAPR-837 PO (20:05)
[2021-01-09] MEDS ORDERED: ASPE4PAD TOP (20:05)
[2021-01-09] MEDS ORDERED: predniSONE 20 MG TAB PO ONE (20:05)
[2021-01-09] MEDS ORDERED: PRED20TA PO (20:05)
[2021-01-09] MEDS ORDERED: METH-1165 PO (20:05)
[2021-01-09 20:20] VITALS: BP 117/76
[2021-01-10] MEDS ORDERED: **NOTE PATIENT COMMENT** MISC XX ONE (05:00)
== END 2021-01-09 20:32 | disposition home or self-care (01) ==
LOC: M ED 15:56
DX: M54.5 Low back pain (principal); I10 Essential (primary) hypertension; Z79.899 Other long term (current) drug therapy
CPT/HCPCS: 72110; 96372; 99283; J1885; J7512